=== PATIENT | female | born 1970 | race Hispanic/Latino ===

== ENCOUNTER 2018-09-16 22:38 | Emergency (ER) | payer OTHER ==
--- NOTE | 2018-09-16 23:42 | EDPHYS ---
Physician Documentation [facility] Name: Emely Jones Age: 48 yrs Sex: Female : 1970 Arrival Date: 09/16/2018 Time: 22:41 Bed 18 Private MD: ED Physician Veto Delgado HPI: 09/16 23:36 This 48 yrs old Female presents to ER via Ambulatory with complaints of R jr8 Breast Pain. 23:36 the patient presents with a swollen area of the right breast. Description: The affected jr8 area is moderate sized, localized, erythematous, warm. Onset: The symptoms/episode began/occurred gradually, 2 day(s) ago. Possible cause(s): unknown. Associated signs and symptoms: The patient has no apparent associated signs or symptoms. Modifying factors: the symptoms are alleviated by nothing, the symptoms are aggravated by pressure, squeezing the lesion and expressing the contents, touching. Severity of symptoms: At their worst the symptoms were mild, in the emergency department the symptoms are unchanged. The patient has experienced a previous episode. The patient has not recently seen a physician. Patient stated that she has had a breast abscess once before and thinks she may have another one. Stated that her right breast is red and tender to touch near the areola region . 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 - Social history:: Smoking status: Patient uses tobacco products, denies chronic smoking, but will smoke occasionally. - Ebola Screening: : No symptoms or risks identified at this time. ROS: 23:36 Eyes: Negative for injury, pain, redness, and discharge, ENT: Negative for injury, jr8 pain, and discharge, Neck: Negative for injury, pain, and swelling, Cardiovascular: Negative for chest pain, palpitations, and edema, Respiratory: Negative for shortness of breath, cough, wheezing, and pleuritic chest pain, Abdomen/GI: Negative for abdominal pain, nausea, vomiting, diarrhea, and constipation, Back: Negative for injury and pain, MS/Extremity: Negative for injury and deformity, Neuro: Negative for headache, weakness, numbness, tingling, and seizure. 23:36 Skin: Positive for cellulitis, of the right breast. Exam: 23:36 Eyes: Pupils equal round and reactive to light, extra-ocular motions intact. Lids and jr8 lashes normal. Conjunctiva and sclera are non-icteric and not injected. Cornea within normal limits. Periorbital areas with no swelling, redness, or edema. ENT: Nares patent. No nasal discharge, no septal abnormalities noted. Tympanic membranes are normal and external auditory canals are clear. Oropharynx with no redness, swelling, or masses, exudates, or evidence of obstruction, uvula midline. Mucous membranes moist. Neck: Trachea midline, no thyromegaly or masses palpated, and no cervical lymphadenopathy. Supple, full range of motion without nuchal rigidity, or vertebral point tenderness. No Meningismus. Cardiovascular: Regular rate and rhythm with a normal S1 and S2. No gallops, murmurs, or rubs. Normal PMI, no JVD. No pulse deficits. Respiratory: Lungs have equal breath sounds bilaterally, clear to auscultation and percussion. No rales, rhonchi or wheezes noted. No increased work of breathing, no retractions or nasal flaring. Abdomen/GI: Soft, non-tender, with normal bowel sounds. No distension or tympany. No guarding or rebound. No evidence of tenderness throughout. Back: No spinal tenderness. No costovertebral tenderness. Full range of motion. MS/ Extremity: Pulses equal, no cyanosis. Neurovascular intact. Full, normal range of motion. Neuro: Awake and alert, GCS 15, oriented to person, place, time, and situation. Cranial nerves II-XII grossly intact. Motor strength 5/5 in all extremities. Sensory grossly intact. Cerebellar exam normal. Normal gait. 23:36 Chest/axilla: Breasts: right breast has erythema, and induration to the 9 o'clock position of breath going into the areola region. Approximately 3 cm in diameter. No fluctuance felt. No discharge expressed from nipple. No lymphadenopathy palpated to breast or axilla on right side . Vital Signs: 23:05 BP 165 / 72; Pulse 89; Resp 20; Temp 98.4; Pulse Ox 98% on R/A; Weight 104.33 kg; ak1 Height 5 ft. 1 in. (154.94 cm) (R); Pain 8/10; 09/17 00:00 BP 149 / 73; Pulse 83; Resp 18; Temp 98.5; Pulse Ox 97% on R/A; aa1 09/16 23:05 Body Mass Index 43.46 (104.33 kg, 154.94 cm) ak1 MDM: 09/16 23:15 Patient medically screened. jr8 23:36 Data reviewed: vital signs, nurses notes, and as a result, I will discharge patient. jr8 Data interpreted: Pulse oximetry: on room air is 98 %. Interpretation: normal. Counseling: I had a detailed discussion with the patient and/or guardian regarding: the historical points, exam findings, and any diagnostic results supporting the discharge/admit diagnosis, the need for outpatient follow up, a general surgeon, to return to the emergency department if symptoms worsen or persist or if there are any questions or concerns that arise at home. ED course: Discussed with patient that we will start her on antibiotics tonight. Needs to f/u with General Surgery for next available appointment tomorrow to see if abscess is present. No US on tonight. If worse in between then can come back for evaluation and admission if needed. Patient good with this plan. Administered Medications: 23:55 Drug: Clindamycin 600 mg Route: IM; Site: right gluteus; aa1 09/17 00:10 Follow up: Response: No adverse reaction; Medication administered at discharge. aa1 Disposition: 02:54 Co-signature as Attending Physician, Veto Delgado MD. rn Disposition: 09/16/18 23:41 Discharged to Home. Impression: Cellulitis of chest wall - Right Breast . - Condition is Stable. - Discharge Instructions: Cellulitis, Adult. - Prescriptions for Clindamycin HCl 300 mg Oral Capsule - take 1 capsule by ORAL route every 6 hours for 10 days; 40 capsule. Bactrim DS 800- 160 mg Oral Tablet - take 1 tablet by ORAL route every 12 hours for 10 days; 20 tablet. - Medication Reconciliation Form, Thank You Letter, Antibiotic Education, Prescription Opioid Use form. - Follow up: Madhu Camop MD; When: Tomorrow; Reason: Recheck today's complaints, Continuance of care, Re-evaluation by your physician. Follow up: Kenji Hunt MD; When: Tomorrow; Reason: Recheck today's complaints, Continuance of care, Re-evaluation by your physician. - Problem is new. - Symptoms have improved. Signatures: Jaye Nixon RN RN aa1 Veto Delgado MD MD rn Roszak, Josh, PA PA jr8 Mary Colmenares RN RN ak1 Corrections: (The following items were deleted from the chart) 00:24 09/16 23:41 09/16/2018 23:41 Discharged to Home. Impression: Cellulitis of chest wall - aa1 Right Breast . Condition is Stable. Forms are Medication Reconciliation Form, Thank You Letter, Antibiotic Education, Prescription Opioid Use. Follow up: Kenji Hunt; When: Tomorrow; Reason: Recheck today's complaints, Continuance of care, Re-evaluation by your physician. Problem is new. Symptoms have improved. jr8
--- NOTE | 2018-09-16 23:42 | ER ---
Nurse's Notes [facility] Name: Emely Jones Age: 48 yrs Sex: Female : 1970 Arrival Date: 09/16/2018 Time: 22:41 Bed 18 Private MD: Diagnosis: Cellulitis of chest wall-Right Breast Presentation: 09/16 23:05 Presenting complaint: Patient states: abscess to right breast, increased pain today. pt ak1 has appointment with Holden Guzmán tomorrow at 10. Transition of care: patient was not received from another setting of care. Onset of symptoms is unknown. Risk Assessment: Do you want to hurt yourself or someone else? Patient reports no desire to harm self or others. Initial Sepsis Screen: Does the patient meet any 2 criteria? No. Patient's initial sepsis screen is negative. Does the patient have a suspected source of infection? No. Patient's initial sepsis screen is negative. Care prior to arrival: None. 23:05 Method Of Arrival: Ambulatory ak1 23:05 Acuity: LAZARO 4 ak1 Triage Assessment: 23:05 General: Appears in no apparent distress. Behavior is calm, cooperative. Pain: ak1 Complains of pain in right breast. 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 - Social history:: Smoking status: Patient uses tobacco products, denies chronic smoking, but will smoke occasionally. - Ebola Screening: : No symptoms or risks identified at this time. Screenin:20 Abuse screen: Denies threats or abuse. Denies injuries from another. Nutritional aa1 screening: No deficits noted. Tuberculosis screening: No symptoms or risk factors identified. Fall Risk None identified. Assessment: 23:20 General: Appears in no apparent distress. comfortable, obese, Behavior is calm, aa1 cooperative, appropriate for age. Pain: Complains of pain in right breast. Neuro: Level of Consciousness is awake, alert, obeys commands, Oriented to person, place, time, situation, Moves all extremities. Full function. Respiratory: Airway is patent Respiratory effort is even, unlabored, Respiratory pattern is regular, symmetrical. GI: No signs and/or symptoms were reported involving the gastrointestinal system. : No signs and/or symptoms were reported regarding the genitourinary system. EENT: No signs and/or symptoms were reported regarding the EENT system. Derm: Skin is intact, is healthy with good turgor, Skin is pink, warm \T\ dry. Derm: Abscess located on right breast has no drainage, is red. Musculoskeletal: Circulation, motion, and sensation intact. Capillary refill < 3 seconds. Vital Signs: 23:05 BP 165 / 72; Pulse 89; Resp 20; Temp 98.4; Pulse Ox 98% on R/A; Weight 104.33 kg; ak1 Height 5 ft. 1 in. (154.94 cm) (R); Pain 8/10; 09/17 00:00 BP 149 / 73; Pulse 83; Resp 18; Temp 98.5; Pulse Ox 97% on R/A; aa1 09/16 23:05 Body Mass Index 43.46 (104.33 kg, 154.94 cm) ak1 ED Course: 09/16 22:41 Patient arrived in ED. do 23:05 Arm band placed on Patient placed in an exam room, on a stretcher, Patient notified of ak1 wait time. 23:06 Triage completed. ak1 23:14 Eyal Vargas PA is PHCP. jr8 23:14 Veto Delgado MD is Attending Physician. jr8 23:20 Patient has correct armband on for positive identification. Bed in low position. Call aa1 light in reach. Pulse ox on. NIBP on. 23:20 No provider procedures requiring assistance completed. Patient did not have IV access aa1 during this emergency room visit. 23:41 Madhu Campo MD is Referral Physician. jr8 23:41 Referral Physician role handed off by Madhu Campo MD jr8 23:41 Kenji Hunt MD is Referral Physician. jr8 23:59 Jaye Nixon RN is Primary Nurse. aa1 Administered Medications: 23:55 Drug: Clindamycin 600 mg Route: IM; Site: right gluteus; aa1 09/17 00:10 Follow up: Response: No adverse reaction; Medication administered at discharge. aa1 Outcome: 09/16 23:41 Discharge ordered by . jr8 09/17 00:20 Discharged to home ambulatory, with family. aa1 Condition: good Discharge instructions given to patient, Instructed on discharge instructions, follow up and referral plans. medication usage, Demonstrated understanding of instructions, follow-up care, medications, Prescriptions given X 2. 00:24 Patient left the ED. aa1 Signatures: Jaye Nixon RN RN aa1 Eyal Vargas PA PA jr8 Mary Colmenares RN RN ak1 Cathy Rivers do
[2018-09-17] MEDS ORDERED: CLINDAMYCIN IV 150 MG/ML (4 mL) VIAL ONE (00:16)
== END 2018-09-17 00:24 | disposition home or self-care (01) ==
LOC: ER 22:38
DX: N61.0 Mastitis without abscess (principal); Z72.0 Tobacco use
CPT/HCPCS: 96372; 99283; S0077

== ENCOUNTER 2020-10-09 09:10 | Inpatient (IN) | payer OTHER ==
--- OUTSIDE RECORDS SUMMARY | 2020-10-09 09:13 | XMS REPORT | Continuity of Care Document ---
:1970 Author Organization [facility] t Address [address] [place] [address] Care Team Providers Name Role Phone Provider, Urgent Care Attending Clinician Unavailable Walker Aviles DO Attending Clinician Alfredo Herring Attending Clinician Rancho Quiñones MD Attending Clinician Stanley HENRIQUEZ Attending Clinician Problems This patient has no known problems. Allergies, Adverse Reactions, Alerts This patient has no known allergies or adverse reactions. Medications This patient has no known medications. Procedures This patient has no known procedures. Encounters Start End Encounter Admission Attending Care Care Encounter Source Date/Time Date/Time Type Type Clinicians Facility Department ID 2020-05-28 2020-05-28 Urgent ProviderRAJENDRA [id number] 13:15:12 13:56:12 Care [facility] [id number] Care [place] [id number] Professio [phone] [address] 2020-05-26 2020-05-26 Patient RAJENDRA Aviles [id number] 00:00:00 00:00:00 Outreach [facility] [id number] Walker [facility] [id number] PAVGAEL [id number] 2020-02-25 2020-02-25 Urgent JhonatanRAJENDRA whyte [id number] 17:19:24 17:39:[id number] [place] [id number] Professio [phone] [facility] [address] 2020-02-15 2020-02-15 [facility] [id number] 14:45:58 15:05:58 Care [facility] [id number] Care [place] [id number] Professio [phone] [address] 2018-10-10 2018-10-10 Office AZAR Quiñones [id number] 11:25:10 11:59:12 Visit Carroll Vickers AMBULATOR [id number] Y [id number] 2018-10-09 2018-10-09 Office Stanley [facility] [id number] 11:25:47 13:29:08 Visit Nini Sinha [id number] [place] [id number] Professio [phone] [address] Results This patient has no known results.
[2020-10-09] MEDS ORDERED: PIPERACIL/TAZO 3.375 GM VIAL IV ONE ×2 (10:40→17:42)
[2020-10-09] MEDS ORDERED: NA CHLORIDE 0.9% 1,000 ML ONE ×2 (10:40→14:10)
[2020-10-09] MEDS ORDERED: ACETAMINOPHEN 325 MG TABLET ONE (10:40)
[2020-10-09] MEDS ORDERED: NA CHLORIDE 0.9% 100 ML ONE (10:41)
[2020-10-09 11:06] LABS: Absolute Lymphocytes (CBC) 1.1 K/uL (0.7-4.9); Basophils % 0.2 % (0-1.3); Hematocrit 39.8 % (36.0-45.0); Lymphocytes % 6.4 % (15.3-44.8); MPV 9.9 fL (7.6-11.3); RBC Red Blood Cell Count 4.18 M/uL (3.86-4.86)
--- NOTE | 2020-10-09 11:27 | RAD REPORT ---
EXAM DESCRIPTION: CT - Pelvis W/Cont - 10/09/2020 11:18 am CLINICAL HISTORY: sana-rectal swelling and pain, eval for abscess Pain and swelling COMPARISON: No comparisons TECHNIQUE: All CT scans are performed using dose optimization technique as appropriate and may inclu de automated exposure control or mA/KV adjustment according to patient size. FINDINGS: Significant soft tissue air is seen in the medial right buttock. There is evidence of righ t-sided perirectal abscess containing air and fluid measuring 4 x 3 cm. The surrounding soft tissues show moderate inflammation and air. Enlarged bilateral inguinal lymph nodes are seen, likely reactive. No intrapelvic abscess, fluid or m ass. IMPRESSION: 4 x 3 cm right-sided perirectal/medial buttock abscess with significant surrounding infl ammation and soft tissue gas.
--- NOTE | 2020-10-09 11:32 | ER ---
Nurse's Notes [facility] Name: Emely Jones Age: 50 yrs Sex: Female : 1970 Arrival Date: 10/09/2020 Time: 09:13 Bed 17 Private MD: Diagnosis: Anorectal abscess Presentation: 10/09 09:19 Chief complaint: Patient states: R sided abscess to buttocks, first noticed Saturday. Got bb bigger and more painful since, denies drainage. Feels achy, sweaty, little nausea now. Coronavirus screen: Client denies travel out of the [place] in the last 14 days. At this time, the client does not indicate any symptoms associated with coronavirus-19. Ebola Screen: Patient denies travel to an Ebola-affected area in the 21 days before illness onset. Initial Sepsis Screen: Does the patient meet any 2 criteria? No. Patient's initial sepsis screen is negative. Does the patient have a suspected source of infection? Yes: Skin breakdown/wound. Risk Assessment: Do you want to hurt yourself or someone else? Patient reports no desire to harm self or others. Onset of symptoms was October 07, 2020. 09:19 Method Of Arrival: Ambulatory bb 09:19 Acuity: LAZARO 3 bb Triage Assessment: 09:20 General: Appears uncomfortable, Behavior is calm, cooperative, appropriate for age. ll1 Pain: Complains of pain in buttocks Pain currently is 10 out of 10 on a pain scale. Quality of pain is described as aching, throbbing, Aggravated by increased activity, weight bearing. Derm: Abscess located on R buttocks is unable to evaluate in triage chair. Historical: - Allergies: 09:18 No Known Allergies; bb - PMHx: 09:18 chronic back pain; Hypertensive disorder; bb - PSHx: 09:18 Tonsillectomy; section; bb - Immunization history:: Client reports having NOT received the Covid vaccine. Flu vaccine is not up to date. - Social history:: Smoking status: Patient reports the use of cigarette tobacco products, denies chronic smoking, but will smoke occasionally. - Family history:: not pertinent. - Hospitalizations: : No recent hospitalization is reported. Screenin:55 Abuse screen: Denies threats or abuse. Nutritional screening: No deficits noted. ll1 Tuberculosis screening: No symptoms or risk factors identified. Assessment: 13:40 Reassessment: PT MARIBELL WITH OR PERSONNEL. bp Vital Signs: 09:19 BP 148 / 80; Pulse 104; Resp 17; Temp 100.3; Pulse Ox 95% on R/A; Weight 97.52 kg; bb Height 5 ft. 1 in. (154.94 cm); Pain 10/10; 11:45 BP 120 / 60; Pulse 96; Resp 17; Temp 98; bp 12:00 BP 111 / 69; Pulse 97; Resp 20; Pulse Ox 95% ; bp 13:57 BP 110 / 74; Pulse 87; Resp 16; Pulse Ox 95% ; bp 09:19 Body Mass Index 40.62 (97.52 kg, 154.94 cm) bb ED Course: 09:13 Patient arrived in ED. mr 09:21 Triage completed. bb 09:52 Arm band placed on Patient placed in an exam room, on a stretcher. ll1 09:54 Veto Delgado MD is Attending Physician. rn 09:55 Patient has correct armband on for positive identification. Bed in low position. Call ll1 light in reach. Side rails up X 1. 10:11 Mauricio Marshall, RN is Primary Nurse. bp 10:53 Inserted saline lock: 22 gauge in right antecubital area, using aseptic technique. jd3 Blood collected. 11:18 CT Pelvis w cont In Process Unspecified. EDMS 11:32 Bandar Randle MD is Hospitalizing Provider. rn 14:00 No provider procedures requiring assistance completed. Patient admitted, IV remains in bp place. Administered Medications: 10:15 Drug: Tylenol 650 mg Route: PO; bp 13:05 Follow up: Response: Temperature is decreased bp 10:45 Drug: NS 0.9% 1000 ml Route: IV; Rate: 1000 ml; Site: right antecubital; bp 13:20 Follow up: IV Status: Completed infusion bp 10:45 Drug: Zosyn (piperacillin-tazobactam) 3.375 grams Route: IVPB; Infused Over: 60 mins; bp Site: right antecubital; 13:05 Follow up: IV Status: Completed infusion; IV Intake: 100ml bp 11:45 Drug: morphine 4 mg Route: IVP; Site: right antecubital; bp 13:06 Follow up: Response: Pain is decreased bp 12:00 Drug: Insulin Regular Human 10 units {Co-Signature: jmau (Chago Agustin RN).} Route: bp Sub-Q; Site: abdomen; 14:17 Follow up: Response: No adverse reaction bp Intake: 13:05 IV: 100ml; Total: 100ml. bp Outcome: 11:32 Decision to Hospitalize by Provider. rn 13:42 Patient left the ED. eb Signatures: Dispatcher [employer] EDCT Girma July Elena Rodríguez RN RN Veto Blood MD MD rn Davies, Chago RN RN jd3 Mauricio Marshall RN RN Kady Light Lynsay RN RN ll1 Chago Agustin RN jd3 Corrections: (The following items were deleted from the chart) 09:52 09:18 Arm band placed on Patient placed in an exam room, on a stretcher, shandra ll1 12:14 12:00 BP 111 / 69; Pulse 97bpm; Resp 26bpm; Pulse Ox 95%; bp bp
--- NOTE | 2020-10-09 11:32 | EDPHYS ---
Physician Documentation [facility] Name: Emely Jones Age: 50 yrs Sex: Female : 1970 Arrival Date: 10/09/2020 Time: 09:13 Bed 17 Private MD: ED Physician Veto Delgado HPI: 10/09 10:23 This 50 yrs old Female presents to ER via Ambulatory with complaints of rn Abscess. 10:23 The patient presents with an abscess of the buttocks. Description: The affected area is rn moderate sized, confluent, erythematous, fluctuant, swollen, warm. Onset: The symptoms/episode began/occurred 2 day(s) ago. Possible cause(s): unknown. Associated signs and symptoms: Pertinent positives: erythema, fever, Pertinent negatives: vomiting. Modifying factors: the symptoms are alleviated by nothing, the symptoms are aggravated by movement, sitting, squeezing the lesion and expressing the contents, touching. Severity of symptoms: At their worst the symptoms were moderate, in the emergency department the symptoms are unchanged. The patient has not experienced similar symptoms in the past. The patient has not recently seen a physician. Patient reports swelling and pain to right buttocks that began 2 days ago, associated with fever and chills. Has had multiple abscesses before but usually located in axilla. This is first time on buttocks. Reports hurts to walk and sit. Denies diarrhea. Historical: - Allergies: 09:18 No Known Allergies; bb - PMHx: 09:18 chronic back pain; Hypertensive disorder; bb - PSHx: 09:18 Tonsillectomy; section; bb - Immunization history:: Client reports having NOT received the Covid vaccine. Flu vaccine is not up to date. - Social history:: Smoking status: Patient reports the use of cigarette tobacco products, denies chronic smoking, but will smoke occasionally. - Family history:: not pertinent. - Hospitalizations: : No recent hospitalization is reported. ROS: 10:23 Constitutional: Positive for fever and chills Eyes: Negative for injury, pain, redness, rn and discharge, ENT: Negative for injury, pain, and discharge, Neck: Negative for injury, pain, and swelling, Cardiovascular: Negative for chest pain, palpitations, and edema, Respiratory: Negative for shortness of breath, cough, wheezing, and pleuritic chest pain, Abdomen/GI: Negative for abdominal pain, nausea, vomiting, diarrhea, and constipation, Back: Negative for injury and pain, : Negative for injury, bleeding, discharge, and swelling, MS/Extremity: Negative for injury and deformity, Skin: Positive for pain and swelling buttocks region Neuro: Negative for headache, weakness, numbness, tingling, and seizure. 10:23 All other systems are negative. Exam: 10:23 Constitutional: This is a well developed, well nourished patient who is awake, alert, rn and in no acute distress. Head/Face: Normocephalic, atraumatic. Eyes: Periorbital areas with no swelling, redness, or edema. Cardiovascular: Tachycardic, regular. Respiratory: No increased work of breathing, no retractions or nasal flaring. Abdomen/GI: Soft, nontender. Small area of fluctuance and erythema on right buttocks along gluteal cleft, surrounding erythema with blanching that extends along gluteal cleft downwards towards anal region. Skin: Warm, dry MS/ Extremity: Pulses equal, no cyanosis. Neuro: Awake and alert, GCS 15 12:07 ECG was reviewed by the Attending Physician. rn Vital Signs: 09:19 BP 148 / 80; Pulse 104; Resp 17; Temp 100.3; Pulse Ox 95% on R/A; Weight 97.52 kg; bb Height 5 ft. 1 in. (154.94 cm); Pain 10/10; 11:45 BP 120 / 60; Pulse 96; Resp 17; Temp 98; bp 12:00 BP 111 / 69; Pulse 97; Resp 20; Pulse Ox 95% ; bp 13:57 BP 110 / 74; Pulse 87; Resp 16; Pulse Ox 95% ; bp 09:19 Body Mass Index 40.62 (97.52 kg, 154.94 cm) bb MDM: 09:55 Patient medically screened. rn 11:31 Differential diagnosis: abscess, cellulitis. Data reviewed: vital signs, nurses notes, fraternity adviser test result(s), radiologic studies, CT scan, and as a result, I will admit patient. Counseling: I had a detailed discussion with the patient and/or guardian regarding: the historical points, exam findings, and any diagnostic results supporting the discharge/admit diagnosis, lab results, radiology results, the need for further work-up and treatment in the hospital. Response to treatment: the patient's symptoms have mildly improved after treatment, and as a result, I will admit patient. Admission orders: after a detailed discussion of the patient's condition and case, the admit orders are written by me. ED course: Patient with moderate sized perirectal abscess, soft tissue inflammation and gas. Zosyn given earlier. Consulted with Dr. Randle will admit and take to the OR soon.. 10/09 10:07 Order name: CBC with Diff rn 10/09 10:07 Order name: Basic Metabolic Panel; Complete Time: 11:40 rn 10/09 10:07 Order name: Blood Culture Adult (2) rn 10/09 10:10 Order name: COVID-19 : Document "Date of Symptom Onset" if Symptomatic. [facility] 10/09 12:02 Order name: Manual Differential EDTN 10/09 10:07 Order name: CT Pelvis w cont; Complete Time: 11:28 rn 10/09 12:27 Order name: SARS-COV-2 RT PCR EDTN 10/09 13:41 Order name: Urine Dipstick-Ancillary EDTN 10/09 10:07 Order name: IV Start; Complete Time: 10:57 rn 10/09 10:07 Order name: EKG; Complete Time: 10:08 rn 10/09 10:07 Order name: EKG - Nurse/Tech; Complete Time: 12:11 rn 10/09 10:10 Order name: Droplet/Contact Precautions; Complete Time: 10:44 1 10/09 11:35 Order name: NPO; Complete Time: 12:11 rn EC:07 Rate is 95 beats/min. Rhythm is regular. QRS [place] is Normal. AR interval is normal. QRS rn interval is normal. QT interval is normal. No Q waves. T waves are Normal. No ST changes noted. Clinical impression: Normal ECG. Interpreted by me. Reviewed by me. Administered Medications: 10:15 Drug: Tylenol 650 mg Route: PO; bp 13:05 Follow up: Response: Temperature is decreased bp 10:45 Drug: NS 0.9% 1000 ml Route: IV; Rate: 1000 ml; Site: right antecubital; bp 13:20 Follow up: IV Status: Completed infusion bp 10:45 Drug: Zosyn (piperacillin-tazobactam) 3.375 grams Route: IVPB; Infused Over: 60 mins; bp Site: right antecubital; 13:05 Follow up: IV Status: Completed infusion; IV Intake: 100ml bp 11:45 Drug: morphine 4 mg Route: IVP; Site: right antecubital; bp 13:06 Follow up: Response: Pain is decreased bp 12:00 Drug: Insulin Regular Human 10 units {Co-Signature: [id number] (Chago Agustin RN).} Route: bp Sub-Q; Site: abdomen; 14:17 Follow up: Response: No adverse reaction bp Disposition Summary: 10/09/20 11:32 Hospitalization Ordered Hospitalization Status: Inpatient Admission rn Provider: Bandar Randle rn Location: Telemetry/MedSurg (Inpatient) rn Condition: Stable rn Problem: new rn Symptoms: have improved rn Bed/Room Type: Standard rn Room Assignment: rn Diagnosis - Anorectal abscess rn Forms: - Medication Reconciliation Form rn - SBAR form rn Signatures: Dispatcher [employer] EDElena Carney RN RN Veto Blood MD MD rn Peltier, Brian RN RN Tima Hoskins RN RN ll1 Chago Agustin RN [id number] Corrections: (The following items were deleted from the chart) 11:30 10:11 CORONAVIRUS ordered. EDTN EDMS
[2020-10-09] MEDS ORDERED: MORPHINE 4 MG/ML SYR ONE (11:53)
[2020-10-09] MEDS ORDERED: ONDANSETRON 4 MG/2 ML VIAL ONE (11:54)
[2020-10-09 12:02] LABS: Blood Morphology Comment NOT SEEN (NOT SEEN); Platelet Estimate ADEQ
[2020-10-09] MEDS ORDERED: INSULIN -REGULAR HUMAN 50 UNIT/0.5 ML ML ONE ×2 (13:38→14:23)
[2020-10-09 13:41] LABS: Urine Blood 2+ (Negative); Urine Glucose 2+ (Negative); Urine Protein 3+ (Negative); Urine Specific Gravity 1.025 (1.005-1.030); Urine pH 5.5 (5.0-7.0)
[2020-10-09] MEDS: BUPIVACAINE 0.5% PF 10 ML VIAL ONE ×2 (14:03→14:19)
--- NOTE | 2020-10-09 14:12 | P.HP ---
Date of Service: 10/09/20 PC: This 50-year-old female presented to the emergency room with severe pain in her buttock. HPC: Patient is experiencing pain and pressure in her right buttock. Yesterday she noticed it was increasing and then last night noticed a bulge in the area of her right buttock. PSHx: NAD PMHx: Hypertension, denies diabetes Social Hx: No known allergies Sys R: No cough, wheeze, shortness of breath. No chest pain or palpitations. No urinary complaints O/E: Awake alert vital signs are stable obviously uncomfortable cannot lay on her back HEENT: Within normal limits Chest: Chest movement equal bilaterally Abd: Negative [place]: Obvious swelling in the right gluteal area Data: CT scan demonstrates large perirectal abscess Impression: Perirectal abscess Plan: I will take to the operating room for incision, drainage, sharp debridement of this abscess. The risks of this procedure have been discussed. The possibility of bleeding, infection, recurrence, and need for further surgeries or procedures was described. She understands and wants us to proceed.
[2020-10-09] MEDS ORDERED: SUCCINYLCHOLINE 20 MG/ML (10 ML) IV ONE (14:27)
[2020-10-09] MEDS ORDERED: propofoL 200 MG/20 ML VIAL IV ONE (14:28)
[2020-10-09] MEDS ORDERED: FENTANYL CITR 100 MCG/2 ML ONE (14:28)
[2020-10-09] MEDS ORDERED: MIDAZOLAM HCL 2 MG/2 ML INJ ONE (14:28)
--- NOTE | 2020-10-09 15:16 | P.OP ---
Preoperative diagnosis: Perirectal abscess Postoperative diagnosis: Perirectal abscess with necrotizing fasciitis Primary procedure: Incision, drainage, and sharp debridement of perirectal abscess Anesthesia: General Estimated blood loss: Less than 10 cc Specimen: Cultures both aerobic and anaerobic were sent Operative Technique: The patient was brought the operating room and placed supine on the table. Af ter the induction of adequate general endotracheal anesthesia, the patient was placed into the lithotomy position. The perineal area was prepped with a Betadine solution, and draped in the usual aseptic manner. On the right side of the buttock we could see an area of obvious bulging and fluctuance. No true subcutaneous crepitus was palpated. A skin incision was made over the area of maximum bulging. This was brought down through the skin and subcutaneous tissue. We encountered 3 watery purulent material in this area. This abscess cavity was now broken down using blunt and sharp dissecti ons. We were able to debride necrotic material using blunt and sharp dissection and a cutting surgical curette as as well as 11 blade. The abscess also extended upward just lateral to the anus and introitus. A counterincision was made in this area through which 1/2 inch Herminio drain was placed. This was pulled back into our initial incisional area. The loculations were broken down until we felt we had cut back to normal tissue. At this point the wound was irrigated with a copious amount of saline solution. This was done until the effluent was clear. At this point a sterile dressing wa s applied, and she was sent to the recovery room in a stable condition. She May need to come back tomorrow for reexploration of this wound. To ensure that we have adequately debrided all the necrotic tissue. Complications: None Drain(s): Other (Half inch Michael-Galan drain) Transferred to: Recovery Room Condition: Good
[2020-10-09] MEDS ORDERED: VANCOMYCIN 1.25 GM in NA CHLORIDE 0.9% 250 ML IVPB SCH (16:00)
[2020-10-09 17:11] VITALS: BMI 40.6
[2020-10-09] MEDS ORDERED: PIPER/TAZO/NS 3.375gm 3.375 GM/100 ML BAG IVPB SCH (18:00)
[2020-10-09] MEDS ORDERED: VANCOMYCIN 1.75 GM in NA CHLORIDE 0.9% 500 ML IVPB SCH (18:00)
[2020-10-09] MEDS: ONDANSETRON 4 MG/2 ML VIAL IV PRN (18:01)
[2020-10-09] MEDS: NA CHLORIDE 0.9% 1,000 ML IV SCH (18:02)
[2020-10-09] MEDS: PIPER TAZO 3.375 GM in NA CHLORIDE 0.9% 100 ML IV SCH (19:00)
[2020-10-09] MEDS ORDERED: VANCOMYCIN 1 GM/VIAL ONE (19:32)
[2020-10-09] MEDS: MORPHINE 4 MG/ML SYR IV PRN (19:43)
[2020-10-09] MEDS: HYDROCODONE/APAP 7.5/325 MG TAB PO PRN (22:28)
[2020-10-10] MEDS ORDERED: VANCOMYCIN 1 GM/VIAL ONE (00:15)
[2020-10-10] MEDS: PIPER TAZO 3.375 GM in NA CHLORIDE 0.9% 100 ML IV SCH ×4 (01:00→17:28)
[2020-10-10] MEDS ORDERED: PIPERACIL/TAZO 3.375 GM VIAL IV ONE (01:09)
[2020-10-10] MEDS: NA CHLORIDE 0.9% 1,000 ML IV SCH ×4 (01:47→21:47)
[2020-10-10] MEDS: MORPHINE 4 MG/ML SYR IV PRN ×2 (05:09→09:36)
[2020-10-10 05:57] LABS: Absolute Lymphocytes (CBC) 1.5 K/uL (0.7-4.9); Basophils % 0.2 % (0-1.3); Hematocrit 36.9 % (36.0-45.0); Lymphocytes % 11.3 % (15.3-44.8); MPV 9.9 fL (7.6-11.3); RBC Red Blood Cell Count 3.84 M/uL (3.86-4.86)
[2020-10-10 06:18] LABS: BUN Blood Urea Nitrogen 9 mg/dL (7-18); Bicarbonate 22 mmol/L (21-32); Glucose Level 261 mg/dL (74-106); Potassium 3.8 mmol/L (3.5-5.1); Sodium Level 138 mmol/L (136-145)
[2020-10-10] MEDS ORDERED: D50W 25 GM/50 ML SYRINGE IV PRN ×2 (06:49→19:28)
[2020-10-10] MEDS ORDERED: GLUCAGON 1 MG/VIAL IM PRN ×2 (06:49→19:28)
--- NOTE | 2020-10-10 09:06 | EKG ---
Test Date: 2020-10-09 Test Time: 11:48:16 Corn Miller: BP MEASUREMENT RESULTS: Intervals: Rate: 95 WV: 124 QRSD: 90 QT: 358 QTc: 449 [place]: P: 31 WV: 124 QRS: 49 T: 14 INTERPRETIVE STATEMENTS: Normal sinus rhythm Normal ECG No previous ECG available for comparison Electronically Signed On 10-10-20 09:04:03 CDT by Marbin David
[2020-10-10] MEDS: INSULIN -REGULAR HUMAN 50 UNIT/0.5 ML ML SQ SCH ×4 (09:24→21:46)
[2020-10-10] MEDS: ONDANSETRON 4 MG/2 ML VIAL IV PRN (09:36)
[2020-10-10] MEDS ORDERED: VANCOMYCIN 1.75 GM in NA CHLORIDE 0.9% 500 ML IVPB SCH ×2 (10:00→13:00)
--- NOTE | 2020-10-10 14:40 | P.PN ---
Date of Service: 10/10/20 S: Patient is pain is a lot less today. Still complaining of some soreness in the area, and having fevers and chills. O: Swelling in the area is a lot less, drain is intact, does have some foul- smelling drainage however still coming from the wound A: Surgically stable, but suspect still has ongoing infection in this abscess cavity P: I will take her back to the operating room today for reexploration of this wound with further debridement of this abscess cavity. Still awaiting results from cultures and sensitivity. The risks of this procedure again was explained to the patient. The need for further surgeries. She understands and wants to proceed.
[2020-10-10] MEDS ORDERED: SUCCINYLCHOLINE 20 MG/ML (10 ML) IV ONE (15:30)
[2020-10-10] MEDS ORDERED: FENTANYL CITR 100 MCG/2 ML ONE ×2 (15:32→17:01)
[2020-10-10] MEDS ORDERED: propofoL 200 MG/20 ML VIAL IV ONE (15:32)
[2020-10-10] MEDS ORDERED: NA CHLORIDE 0.9% 1,000 ML ONE (16:11)
--- NOTE | 2020-10-10 16:15 | P.OP ---
Preoperative diagnosis: Exploration of surgically drained abscess cavity Postoperative diagnosis: The same Primary procedure: Extension of surgical wounds Secondary procedure: Reexploration of perirectal abscess Anesthesia: General Estimated blood loss: Less than 15 cc Specimen: Necrotic and gangrenous material submitted to pathology Operative Technique: T the patient was brought to the operating room and placed supine on the table. After the induction of adequate general endotracheal anesthesia, the patient was placed into the lithotomy position. Her surgical dressings were removed. Prior to draping, we were able to inspect her wounds. We could notice there was still some fullness to the buttock on that right side posteriorly in comparison to the left. On removing her surgical drain there was still some foul-smelling discharge from the inferior incision. What was of more concern was that it had the typical dishwater type appearance associated with necrotizing fasciitis. The area of the perineum was now prepped with a Betadine solution, and she was draped in the usual aseptic manner. With the patient in slight Trendelenburg, we were able to inspect and palpate the right perirectal abscess that we had drained the previous day. There was a superior and inferior incision leading into this cavity. A finger was placed inside this inferior cut bring it out the superior and by cutting down on her finger with the electrocautery we were able to completely unroofed the abscess cavity itself. This incision now left the wound open over approximately 4 inches in length. Having opened the abscess cavity completely we were able to inspect medially and posteriorly. We could see there was still some necrotic foul-smelling obviously gangrenous material with typical drainage from it. This was sharply excised using a cutting 11 surgical blade, a cutting surgical curette, as well as electrocautery to control the bleeding that we encountered. The wound then was cut back to viable tissue. Placing a finger into the rectum and anal canal, we could see that this is very close to the rectum itself, but there does not appear to be a direct communication from the rectum and anus to the abscess, but the tissue destruction abutted up to the edge of the structure. The wound was now irrigated with some saline solution. It was then irrigated with hydrogen peroxide. After the effervescence and the removal of the remaining debris we had good clean viable tissue appearing all around of our incision. The wound was very loosely approximated at its midpoint with an interrupted suture of chromic. Iodoform gauze was gently laid into the abscess cavity, and will be removed tomorrow. At the end of the procedure a dressing was applied. OB panties were used to hold the dressing in place. After our bedside dressing change tomorrow, will I will decide whether or not she would need to return to the operating room for further examination and debridement. I had explained to the patient preoperatively that this may be the case. She understand and wanted to proceed. Complications: None Drain(s): Other (Quarter-inch iodoform gauze) Transferred to: Recovery Room Condition: Good
[2020-10-10] MEDS ORDERED: KETOROLAC 30 MG/ML INJ ONE (16:49)
--- NOTE | 2020-10-10 19:19 | P.CNS ---
Date of Consult: 10/10/20 Reason for Consult: Medical management Requesting Physician: Bandar Randle Chief Complaint: Gluteal abscess History of Present Illness: 50-year-old woman who had right perirectal abscess drain and with drainage left in place presented to the ED increased pain. CT scan suggested new development of perirectal abscess despite having drainage in place. Patient admitted to Surgery service and re-exploration of the perirectal abscess done. Patient also noted to be hyperglycemic with blood sugar of 429 in the ED. Hospitalist services consulted for medical management. Patient reports less pain since the surgery. Her blood sugar is now running in the 200s. Allergies No Known Allergies Allergy (Verified 10/09/20 14:43) Home Medications: Carvedilol [Coreg] 1 tab PO BID 10/10/20 Cyclobenzaprine HCl [Flexeril] 1 tab PO PRN PRN 10/10/20 Hydrocodone/Acetaminophen [Hydrocodone-Acetamin 7.5-325] 1 tab PO PRN PRN 10/10/20 Quazepam 1 tab PO PRN PRN 10/10/20 - Past Medical/Surgical History Diabetic: No -: HTN -: sleep apnea -: chronic back pain -: C section -: tonsillectomy - Family History Mother Medical History: Hypertension, Diabetes Father Medical History: Hypertension, Diabetes - Social History Smoking Status: Current some day smoker Alcohol use: Yes CD- Drugs: No Caffeine use: Yes Place of Residence: Home Review of Systems Other: Except as documented, all other systems reviewed and negative. Physical Examination Temp Pulse Resp BP Pulse Ox 97.6 F 90 18 133/65 94 10/10/20 17:30 10/10/20 17:30 10/10/20 17:30 10/10/20 17:30 10/10/20 17:30 General: Alert, In no apparent distress, Oriented x3 HEENT: Mucous membr. moist/pink Neck: JVD not distended Respiratory: Clear to auscultation bilaterally, Normal air movement Cardiovascular: No edema, Regular rate/rhythm, Normal S1 S2, No murmurs Capillary refill: <2 Seconds Gastrointestinal: Normal bowel sounds, Soft and benign, Non-distended, No tenderness Musculoskeletal: No swelling, No tenderness Integumentary: No rashes, No erythema Neurological: Normal speech, Normal strength at 5/5 x4 extr, Cranial nerves 3-12 intact Lymphatics: No axilla or inguinal lymphadenopathy - Problems (1) Perirectal abscess Current Visit: Yes Status: Acute (2) Hyperglycemia Current Visit: Yes Status: Acute (3) Hypertension Current Visit: Yes Status: Acute Conclusions/Impression: Manage blood sugar with insulin sliding scale and Lantus insulin for now. Target blood glucose of less than 200. Check hemoglobin A1c daytime level of glucose control over the past few months. Patient was previously on amoxicillin. Continue current antibiotic-IV Zosyn. There is a question of exposures to [place] becourse [place] the [place] Will cover with IV doxycycline until deep tissue wound culture result. Resume Coreg for blood pressure. Monitor CBC to follow leukocytosis. Pain management. Wound care per general surgery.
[2020-10-10] MEDS ORDERED: INSULIN GLARGINE 100 UNITS/ML SQ SCH (21:00)
[2020-10-10] MEDS: DOXYCYCLINE 100 MG in NA CHLORIDE 0.9% 100 ML IVPB SCH (21:00)
[2020-10-10] MEDS: HYDROCODONE/APAP 7.5/325 MG TAB PO PRN (22:26)
[2020-10-10] MEDS ORDERED: DOXYCYCLINE HYCLATE 100MG INJ ONE (23:02)
[2020-10-10] MEDS ORDERED: NA CHLORIDE 0.9% 100 ML ONE (23:40)
[2020-10-11] MEDS: PIPER TAZO 3.375 GM in NA CHLORIDE 0.9% 100 ML IV SCH ×3 (01:15→16:49)
[2020-10-11 03:17] LABS: Absolute Lymphocytes (CBC) 1.1 K/uL (0.7-4.9); Basophils % 0.6 % (0-1.3); Hematocrit 33.6 % (36.0-45.0); Lymphocytes % 9.4 % (15.3-44.8); MPV 9.7 fL (7.6-11.3)
[2020-10-11 03:37] LABS: Potassium 3.5 mmol/L (3.5-5.1)
[2020-10-11] MEDS: MORPHINE 4 MG/ML SYR IV PRN ×4 (05:12→22:57)
[2020-10-11] MEDS: INSULIN -REGULAR HUMAN 50 UNIT/0.5 ML ML SQ SCH ×4 (08:29→21:00)
[2020-10-11] MEDS: HYDROCODONE/APAP 7.5/325 MG TAB PO PRN (08:30)
[2020-10-11] MEDS: DOXYCYCLINE 100 MG in NA CHLORIDE 0.9% 100 ML IVPB SCH ×2 (08:30→22:51)
[2020-10-11] MEDS: NA CHLORIDE 0.9% 1,000 ML IV SCH ×2 (09:31→16:56)
--- NOTE | 2020-10-11 13:25 | P.PN ---
Subjective Date of Service: 10/11/20 Chief Complaint: Gluteal abscess Subjective: Improving (still with rectal/buttock pain but improved. voiding without issue, ambulating better) Review of Systems 10-point ROS is otherwise unremarkable Physical Examination - Vital Signs Temperature: 96.1 F Blood Pressure: 134/72 Pulse: 88 Respirations: 18 Pulse Ox (%): 98 Assessment & Plan Physician Review Additional Text: Physical Exam General: Alert, In no apparent distress, Oriented x3 HEENT: Mucous membr. moist/pink, normal conjunctiva Respiratory: Clear to auscultation bilaterally, Normal air movement Cardiovascular: No edema, Regular rate/rhythm Gastrointestinal: soft, nontender, nondistended Musculoskeletal: No swelling, No tenderness Neurological: Normal speech, Normal strength at 5/5 x4 extr Problem List Perirectal abscess s/p I&D Diabetes mellitus, type 2, insulin-dependent; new diagnosis Hypertension A1c> 12, continue sliding scale, increase lantus to 20units qHS. diet switched to ADA continue current antibiotics per general surgery cultures pending resumed home anti-hypertensive medication monitor CBC/BMP wound care / pain management per general surgery Dispo: per general surgery, anticipate dc home in 1-2 days if not needing further surgical debridement will need insulin on discharge Time Spent Managing Pts Care (In Minutes): 35
--- NOTE | 2020-10-11 15:39 | P.PN ---
Date of Service: 10/11/20 S: Patient feels better today, has not been having any more fever or chills. Pain appears to be well controlled. Has some itchiness around the area. O: Wound is clean, minimal skin erythema. The iodoform packing was removed. I can see in the upper portion through the wound that there is an area of some remaining necrotic tissue. There is no foul odor from the area today however. A: Appears to be progressing and doing well after yesterday's debridement P: The wound is much drycleaner than yesterday with less drainage. I am still going to take her back to the operating room tomorrow for one last debridement to remove some necrotic rigo from the upper portion of our wound. At that time we will determine whether or not we were able to close this loosely or if she will require wound VAC therapy. I have discussed this with the patient, the possible risks, length of time taking to heal the wound, she understands and wants to proceed.
[2020-10-11] MEDS: ENOXAPARIN 40 MG/0.4 ML SQ SCH (16:50)
[2020-10-11] MEDS: INSULIN GLARGINE 100 UNITS/ML SQ SCH (22:52)
[2020-10-11] MEDS: NYSTATIN 100MU/GM CREAM 15GM TOP SCH (22:52)
[2020-10-12] MEDS: PIPER TAZO 3.375 GM in NA CHLORIDE 0.9% 100 ML IV SCH ×3 (00:59→17:53)
[2020-10-12] MEDS: MORPHINE 4 MG/ML SYR IV PRN ×2 (04:27→21:41)
[2020-10-12] MEDS: NA CHLORIDE 0.9% 1,000 ML IV SCH ×5 (06:10→23:47)
[2020-10-12 06:23] LABS: Absolute Lymphocytes (CBC) 1.1 K/uL (0.7-4.9); Basophils % 0.7 % (0-1.3); Hematocrit 31.9 % (36.0-45.0); Lymphocytes % 14.1 % (15.3-44.8); MPV 9.9 fL (7.6-11.3); RBC Red Blood Cell Count 3.36 M/uL (3.86-4.86)
[2020-10-12 06:37] LABS: Albumin 1.9 g/dL (3.4-5.0); Bilirubin Total 0.5 mg/dL (0.2-1.0); Protein, Total 6.2 g/dL (6.4-8.2)
[2020-10-12 06:39] LABS: Magnesium 1.9 mg/dL (1.8-2.4); Potassium 3.4 mmol/L (3.5-5.1)
[2020-10-12] MEDS: HYDROCODONE/APAP 7.5/325 MG TAB PO PRN ×2 (07:01→17:54)
[2020-10-12] MEDS: INSULIN -REGULAR HUMAN 50 UNIT/0.5 ML ML SQ SCH ×4 (07:30→21:40)
[2020-10-12] MEDS: DOXYCYCLINE 100 MG in NA CHLORIDE 0.9% 100 ML IVPB SCH ×2 (09:45→21:39)
[2020-10-12] MEDS: NYSTATIN 100MU/GM CREAM 15GM TOP SCH ×2 (09:46→21:42)
--- NOTE | 2020-10-12 10:34 | P.PN ---
Subjective Date of Service: 10/12/20 Chief Complaint: Gluteal abscess Subjective: Improving (feeling better today, appetite improved, pain improving. no nausea/vomiting) Review of Systems 10-point ROS is otherwise unremarkable Physical Examination - Vital Signs Temperature: 97.6 F Blood Pressure: 150/79 Pulse: 90 Respirations: 18 Pulse Ox (%): 96 Assessment & Plan Physician Review Additional Text: Physical Exam General: In no apparent distress, Oriented x3 HEENT: Mucous membr. moist/pink, normal conjunctiva Respiratory: Clear to auscultation bilaterally, Normal air movement Cardiovascular: No edema, Regular rate/rhythm Gastrointestinal: soft, nontender, nondistended Skin: wound dressing in place, mild serosanguinous drainage noted on dressing Problem List Perirectal abscess s/p I&D Diabetes mellitus, type 2, insulin-dependent; new diagnosis Hypertension A1c> 12, continue sliding scale, lantus 20units qHS. diet switched to ADA continue current antibiotics per general surgery; cultures pending - GNR resumed home anti-hypertensive medication monitor CBC/BMP wound care / pain management per general surgery to go to OR today for another debridement Dispo: per general surgery, anticipate dc home in 1-2 days if not needing further surgical debridement will need insulin on discharge Time Spent Managing Pts Care (In Minutes): 35
[2020-10-12] MEDS ORDERED: MIDAZOLAM HCL 2 MG/2 ML INJ ONE (13:49)
[2020-10-12] MEDS ORDERED: propofoL 200 MG/20 ML VIAL IV ONE (13:49)
[2020-10-12] MEDS ORDERED: LIDOCAINE 2% MPF 5 ML VIAL ONE (13:50)
[2020-10-12] MEDS ORDERED: FENTANYL CITR 100 MCG/2 ML ONE ×2 (13:50→15:28)
[2020-10-12] MEDS ORDERED: ONDANSETRON 4 MG/2 ML VIAL ONE (13:53)
--- NOTE | 2020-10-12 15:23 | P.OP ---
Preoperative diagnosis: Open surgical wound Postoperative diagnosis: The same Primary procedure: Exploration and debridement of surgical wound Secondary procedure: Reexploration of perirectal abscess Anesthesia: General Estimated blood loss: Less than 10 cc Specimen: Approximately 10 cc of necrotic debris removed, [not sent.] Operative Technique: The patient brought the operating room placed supine on the table. After the induction of adequate general anesthesia she was put into the lithotomy position. The area of the perineum was now prepped with a Betadine solution and she was draped in the usual aseptic manner Attention was turned towards the surgical site located in the right perineal area extending up to the anus towards the inguinal canal this [address] last week to approximate the wound was open allowing us full access to the wound we could see that there was minimal amount of necrotic debris and fluid compared to her last visit to the OR. This remaining amount of tissue appears to be demarcated into the last remaining portion of tissue. It was excised using an 11 blade. And the rest of the fat was freshened up using Metzenbaum scissors as well as a cutting surgical curette. At this point the wound cavity was inspected to ensure adequate hemostasis. A Michael-Galan drain was placed deep into the depths of the wound and brought up to the skin edges. We now loosely approximated the skin using chromic sutures to pull the skin edges together. At this point I am optimistic that we will be able to get this wound to close. I feel that we have adequately debrided at this time and that with antibiotics, we should be able to discharge the patient in the next day or 2. At the end of the procedure a sterile dressing was applied, and she was stable was sent to the recovery room. Drain(s): Other (Quarter inch Herminio drain) Transferred to: Recovery Room Condition: Good
[2020-10-12] MEDS: HYDROMORPHONE HCL 1 MG/ML INJ ONE ×2 (15:26→15:41)
[2020-10-12] MEDS: ENOXAPARIN 40 MG/0.4 ML SQ SCH (17:54)
[2020-10-12] MEDS ORDERED: DIAZEPAM 5 MG TABLET PO ONE (21:00)
[2020-10-12] MEDS: INSULIN GLARGINE 100 UNITS/ML SQ SCH (21:40)
[2020-10-13] MEDS: PIPER TAZO 3.375 GM in NA CHLORIDE 0.9% 100 ML IV SCH ×3 (00:40→16:48)
[2020-10-13] MEDS: MORPHINE 4 MG/ML SYR IV PRN ×3 (04:35→20:57)
[2020-10-13 05:36] LABS: Hematocrit 32.1 % (36.0-45.0); RBC Red Blood Cell Count 3.38 M/uL (3.86-4.86)
[2020-10-13] MEDS: INSULIN -REGULAR HUMAN 50 UNIT/0.5 ML ML SQ SCH ×4 (07:30→20:57)
[2020-10-13] MEDS: NYSTATIN 100MU/GM CREAM 15GM TOP SCH ×2 (09:00→20:57)
[2020-10-13] MEDS: DOXYCYCLINE 100 MG in NA CHLORIDE 0.9% 100 ML IVPB SCH (09:11)
[2020-10-13] MEDS: HYDROCODONE/APAP 7.5/325 MG TAB PO PRN ×2 (09:11→16:48)
[2020-10-13] MEDS: NA CHLORIDE 0.9% 1,000 ML IV SCH (09:47)
--- NOTE | 2020-10-13 11:22 | P.PN ---
Subjective Date of Service: 10/13/20 Chief Complaint: Gluteal abscess Subjective: Improving (pain improving, still requiring around the clock meds. s/p OR yesterday, no nauea/vomiting, +flatus, tolerating diet. culture growing GNR, and MRSA. remains afebrile) Review of Systems 10-point ROS is otherwise unremarkable Physical Examination - Vital Signs Temperature: 97.5 F Blood Pressure: 140/79 Pulse: 83 Respirations: 18 Pulse Ox (%): 100 Assessment & Plan Physician Review Additional Text: Physical Exam General: In no apparent distress, Oriented x3 HEENT: Mucous membr. moist/pink, normal conjunctiva Respiratory: Clear to auscultation bilaterally, Normal air movement Cardiovascular: No edema, Regular rate/rhythm Gastrointestinal: soft, nontender, nondistended Skin: wound dressing in place Problem List Perirectal abscess s/p I&D Diabetes mellitus, type 2, insulin-dependent; new diagnosis Hypertension A1c> 12, continue sliding scale, lantus 20units qHS. ADA diet controls engineer consulted and educated patient continue current antibiotics per general surgery; cultures pending - GNR, MRSA+ MRSA sensitive to Doxy, can go home on Doxy, GNR pending resumed home anti-hypertensive medication wound care / pain management per general surgery will need to be discharged on insulin Dispo: per general surgery, anticipate dc home in 1-2 days will need insulin on discharge Time Spent Managing Pts Care (In Minutes): 35
[2020-10-13] MEDS: ENOXAPARIN 40 MG/0.4 ML SQ SCH (16:48)
[2020-10-13] MEDS: DOXYCYCLINE 100 MG CAP PO SCH (20:56)
[2020-10-13] MEDS: INSULIN GLARGINE 100 UNITS/ML SQ SCH (20:56)
[2020-10-14] MEDS: PIPER TAZO 3.375 GM in NA CHLORIDE 0.9% 100 ML IV SCH ×3 (00:07→16:40)
[2020-10-14] MEDS: HYDROCODONE/APAP 7.5/325 MG TAB PO PRN ×3 (00:11→16:42)
[2020-10-14] MEDS: MORPHINE 4 MG/ML SYR IV PRN ×2 (04:52→12:23)
[2020-10-14] MEDS: INSULIN -REGULAR HUMAN 50 UNIT/0.5 ML ML SQ SCH ×3 (07:30→16:39)
[2020-10-14] MEDS: DOXYCYCLINE 100 MG CAP PO SCH (10:06)
[2020-10-14] MEDS: NYSTATIN 100MU/GM CREAM 15GM TOP SCH (10:07)
--- NOTE | 2020-10-14 10:23 | P.PN ---
Subjective Date of Service: 10/14/20 Chief Complaint: Gluteal abscess Subjective: Improving (feeling better, tolerating diet, voiding, +BM, ready to go home) Review of Systems 10-point ROS is otherwise unremarkable Physical Examination - Vital Signs Temperature: 97.0 F Blood Pressure: 126/71 Pulse: 75 Respirations: 16 Pulse Ox (%): 97 Assessment & Plan Physician Review Additional Text: Physical Exam General: In no apparent distress, Oriented x3 HEENT: Mucous membr. moist/pink, normal conjunctiva Respiratory: Clear to auscultation bilaterally, Normal air movement Cardiovascular: No edema, Regular rate/rhythm Gastrointestinal: soft, nontender, nondistended Skin: wound dressing in place Problem List Perirectal abscess s/p I&D Diabetes mellitus, type 2, insulin-dependent; new diagnosis Hypertension A1c> 12, continue sliding scale, lantus 20units qHS. ADA diet fighter pilot consulted and educated patient continue current antibiotics per general surgery; cultures - GNR, MRSA+ MRSA sensitive to Doxy, can go home on Doxy, GNR pending - or Bactrim would cover resumed home anti-hypertensive medication wound care / pain management per general surgery insulin and glucometer / supplies sent to pharmacy Dispo: per general surgery, anticipate dc home today Time Spent Managing Pts Care (In Minutes): 35
[2020-10-14 12:35] VITALS: O2SAT 96
--- NOTE | 2020-10-14 16:20 | P.DS ---
Admission Date: 10/09/20 Discharge Date: 10/14/20 Disposition: ROUTINE DISCHARGE Discharge Condition: GOOD Reason for Admission: Gluteal abscess Consultations: Dr. Delgado Procedures: Incision, drainage, sharp debridement of perirectal abscess, Reexploration with partial closure of abscess cavity with drainage and sharp debridement Brief History of Present Illness: This patient presented to emergency room with severe pain in her right perirectal area. Hospital Course: The patient was brought to the operating room on the day of her admission for in cision, drainage, sharp debridement of her perirectal abscess. We found that she also had necrotizing fasciitis at that time. Having cleaned back to good tissue, she was admitted for postoperative antibiotics, observation and was scheduled to return the following day to the OR. Following day she was brought back to the operating room. She was reexplored. There was some remaining or tissue that had transitioned to full-blown necrosis. The swelling once again was cleared out. The drainage having been established, she was weak admitted for IV antibiotics and pain control. She remained afe brile, increased her mobility, was educated in drain and wound care, and is now deemed fit for discharge. Vital Signs/Physical Exam: Temp Pulse Resp BP Pulse Ox 97.0 F 75 16 126/71 97 10/14/20 13:53 10/14/20 13:53 10/14/20 13:53 10/14/20 13:53 10/14/20 13:53 Laboratory Data at Discharge: WBC 8.30 K/uL (4.3-10.9) 10/13/20 05:15 Hgb 11.0 g/dL (12.0-15.0) L 10/13/20 05:15 Hct 32.1 % (36.0-45.0) L 10/13/20 05:15 Plt Count 238 K/uL (152-406) 10/13/20 05:15 Sodium 143 mmol/L (136-145) 10/13/20 05:15 Potassium 3.0 mmol/L (3.5-5.1) L 10/13/20 05:15 BUN 7 mg/dL (7-18) 10/13/20 05:15 Creatinine 0.83 mg/dL (0.55-1.3) 10/13/20 05:15 Glucose 137 mg/dL (74-106) H 10/13/20 05:15 Magnesium 1.9 mg/dL (1.8-2.4) 10/12/20 05:40 Total Bilirubin 0.5 mg/dL (0.2-1.0) 10/12/20 05:40 AST 91 U/L (15-37) H 10/12/20 05:40 ALT 84 U/L (12-78) H 10/12/20 05:40 Alkaline Phosphatase 237 U/L (45-117) H 10/12/20 05:40 Home Medications: Carvedilol [Coreg] 1 tab PO BID 10/10/20 Cyclobenzaprine HCl [Flexeril] 1 tab PO PRN PRN 10/10/20 Hydrocodone/Acetaminophen [Hydrocodone-Acetamin 7.5-325] 1 tab PO PRN PRN 10/10/20 Quazepam 1 tab PO PRN PRN 10/10/20 Blood Sugar Diagnostic [Blood Glucose Test Strip] 1 each MC TID 30 Days #90 strip 10/13/20 Blood-Glucose Meter [Blood Glucose Meter] 1 each MC DAILY 30 Days #1 each 10/13/20 Insulin Glargine,Hum.rec.anlog [Lantus Solostar] 20 unit SQ BEDTIME 30 Days #6 ml 10/13/20 Lancets [Unilet Lancet] 1 each MC TID 30 Days #90 each 10/13/20 New Medications: Blood-Glucose Meter [Blood Glucose Meter] 1 each MC DAILY 30 Days #1 each Blood Sugar Diagnostic [Blood Glucose Test Strip] 1 each MC TID 30 Days #90 strip Insulin Glargine,Hum.rec.anlog [Lantus Solostar] 20 unit SQ BEDTIME 30 Days #6 ml Lancets [Unilet Lancet] 1 each MC TID 30 Days #90 each Physician Discharge Instructions: DC IV, DC home. Change dressings as needed. Diet as tolerated. Monitor blood sugars, take medications as required, and see me on Saturday. Any questions or problems, go to the emergency room, or contact my office. Diet: ADA Activity: Ad ashwin Followup: Bandar Randle MD [ACTIVE - CAN ADMIT] - LUISITO MERAZ [Primary Care Provider] -
[2020-10-14 16:36] VITALS: BP 141/67; TEMP 96.8
[2020-10-14] MEDS: ENOXAPARIN 40 MG/0.4 ML SQ SCH (16:39)
== END 2020-10-14 18:08 | disposition home or self-care (01) | DRG 264 ==
LOC: ER 09:10 → ERHOLD 11:35 → 2ND 15:12
PROVIDERS: ADMIT Surgery; ATTEND Surgery
PROC: 0JDC0ZZ Extraction of Pelvic Region Subcutaneous Tissue and Fascia, Open Approach (ICD-10-PCS; principal; 2020-10-09 13:30)
PROC: 0JBC0ZZ Excision of Pelvic Region Subcutaneous Tissue and Fascia, Open Approach (ICD-10-PCS; 2020-10-10)
PROC: 0JBC0ZZ Excision of Pelvic Region Subcutaneous Tissue and Fascia, Open Approach (ICD-10-PCS; 2020-10-12)
DX: E11.52 Type 2 diabetes mellitus with diabetic peripheral angiopathy with gangrene (principal); I96 Gangrene, not elsewhere classified; K61.1 Rectal abscess; E11.9 Type 2 diabetes mellitus without complications; I10 Essential (primary) hypertension; Z20.822 Contact with and (suspected) exposure to COVID-19; B95.62 Methicillin resistant Staphylococcus aureus infection as the cause of diseases classified elsewhere
CPT/HCPCS: 36415; 72193; 80048; 80053; 80202; 81003; 82565; 82947; 83036; 83735; 85025; 85027; 87040; 87070; 87075; 87077; 87186; 87205; 88304; 93005; 94010; 96365; 96366; 96372; 96375; 99284; J0330; J1170; J1650; J1815; J2250; J2405; J2543; J2704; J3010; J3370; J7030; J7040; Q9967; U0003